=== PATIENT | male | born 2000 | race African-American/Black ===

== ENCOUNTER 2020-11-22 01:18 | Emergency (ER) | payer OTHER ==
[~2020-11-22] VITALS: Ht 193 cm; Wt 93.2 kg
[2020-11-22 01:33] VITALS: BP 125/66; TEMP 97.5
[2020-11-22 02:02] LABS: STREP SCREEN NEGATIVE
[2020-11-22 02:22] VITALS: PULSE 60
== END 2020-11-22 02:25 | disposition home or self-care (01) ==
LOC: COL.ER 01:18
PROVIDERS: Emergency Medicine
DX: B34.9 Viral infection, unspecified (principal); Z20.822 Contact with and (suspected) exposure to COVID-19